=== PATIENT | female | born 1990 | race Caucasian/White ===

== ENCOUNTER 2025-05-28 08:02 | Day surgery (SDC) | payer MEDICAID ==
[~2025-05-28 08:02] MED LIST: Propofol 200 MG/20 ML SDV ONE; Ropivacaine 0.5% 5 MG/ML 30 ML SDV ONE; Sodium Chloride 0.9% 10 ML Syringe FLUSH PRN; Sodium Chloride 0.9% 2.5 ML Syringe FLUSH PRN; ceFAZolin 2 GM in Water For Injection, Sterile 20 ML IVPUSH ONE; dexmedeTOMIDine HCl 200 MCG/2 ML SDV ONE; fentaNYL 100 MCG/2 ML SDV ONE
[2025-05-28] MEDS: Scopalamine 1mg/3day Transdermal Patch TOP ONE (08:15)
[2025-05-28] MEDS ORDERED: propofoL 500 MG/50 ML 50 ML ONE ×2 (08:21→11:01)
[2025-05-28] MEDS ORDERED: Ketamine HCL/NACL, ISO-OSM 50 MG/5 ML Syringe ONE (08:25)
[2025-05-28] MEDS ORDERED: Morphine 10 MG/ML SDV ONE (08:25)
[2025-05-28] MEDS: Lactated Ringers 1,000 ML IV SCH (08:30)
[2025-05-28] MEDS ORDERED: Albuterol 0.083% 2.5 MG/3 ML Neb Soln NEB PRN (08:54)
[2025-05-28] MEDS ORDERED: Ondansetron 4 MG/2 ML SDV IVPUSH PRN (08:54)
[2025-05-28] MEDS ORDERED: Naloxone 0.4 MG/ML SDV IVPUSH PRN (08:54)
[2025-05-28] MEDS ORDERED: fentaNYL 50 MCG/ML SDV IVPUSH PRN (08:54)
[2025-05-28] MEDS ORDERED: Lidocaine 2% 11 ML Jelly Filled Syringe ONE (09:10)
[2025-05-28] MEDS: Scopalamine 1mg/3day Transdermal Patch ONE (09:12)
[2025-05-28] MEDS ORDERED: Indocyanine Green 25 MG SDV ONE (09:36)
[2025-05-28] MEDS ORDERED: fentaNYL 100 MCG/2 ML SDV ONE (10:02)
[2025-05-28] MEDS ORDERED: Dexamethasone 4 MG/ML 5 ML MDV ONE (10:06)
[2025-05-28] MEDS ORDERED: Ondansetron 4 MG/2 ML SDV ONE (10:06)
[2025-05-28] MEDS ORDERED: Ketorolac 30 MG/ML SDV ONE (10:06)
[2025-05-28] MEDS: Acetaminophen/HYDROcodone 325-5 MG Tab PO ONE (12:29)
[2025-05-28] MEDS: Acetaminophen/HYDROcodone 325-5 MG Tab ONE (13:29)
== END 2025-05-28 12:50 | disposition home or self-care (01) ==
LOC: MW.SDS 08:02
PROVIDERS: ATTEND Surgery
DX: K80.10 Calculus of gallbladder with chronic cholecystitis without obstruction (principal); K82.8 Other specified diseases of gallbladder; E66.9 Obesity, unspecified; Z68.35 Body mass index [BMI] 35.0-35.9, adult; Z87.891 Personal history of nicotine dependence; Z79.899 Other long term (current) drug therapy
CPT/HCPCS: 47562; 64488; 81025; A9270; J0665; J0690; J1100; J1885; J2272; J2405; J2704; J2795; J3010; J7120; 00790; J3490